=== PATIENT | female | born 1940 | race Caucasian/White ===

== ENCOUNTER 2017-11-06 12:07 | Day surgery (SDC) | payer MEDICARE ==
[~2017-11-06] VITALS: Ht 157.5 cm; Wt 49.7 kg
[~2017-11-06 12:07] MED LIST: ACET325 PO; ACIDOPHILUS PO; ALPR.5 PO; AMIT50 PO; ANAS1 PO; AZAT50 PO; Acidophilus La100 GM; BACL10 PO; BACL20 PO; BIOTIN PO; BISA5EC PO; CALCA500CH PO; CEVIMELINE 30 MG; CEVIMELINE HCL30 MG PO; CHOL10002 PO; CIPR500 PO; CRANBERRY250 MG PO; CYCL0.05OP OP; CYCL10 PO; DOCU100 PO; Desyrel50 MG; ESTR25VT PV; EVOXAC; EVOXAC PO; GABA300 PO; GLUCOSAMINE/MSM PO; HYDACE10B PO; HYDMOR2 PO; LAVAP17G PO; LIDO5TP TOP; MELA3 PO; META800 PO; MULTIVITAMIN; OMEP20ER PO; OMEP40CA12 PO; ONDA4 PO; OXYB5 PO; OXYC15ER PO; OXYC30ER PO; OXYC40ER PO; OXYC5 PO; Oxycodone HCl20 M1 PO; PARO20 PO; POLY17UD PO; PROP30DR OP; PSYL5.85P PO; RANI150 PO; SERT50 PO; VAGIFEM10 MCG; ZOLP10 PO; ZOLP12.5 PO; ZOLP5 PO
[2017-11-06] MEDS ORDERED: HYDSUL200 (12:26)
[2017-11-06] MEDS ORDERED: MYRBETRIQ25 MG (12:26)
== END 2017-11-06 13:38 | disposition home or self-care (01) ==
LOC: ORSCSDS 12:07
PROVIDERS: Internal Medicine Gastroenterology
PROC: 0DB68ZX Excision of Stomach, Via Natural or Artificial Opening Endoscopic, Diagnostic (ICD-10-PCS; principal; 2017-11-06 13:00)
PROC: 0D758ZZ Dilation of Esophagus, Via Natural or Artificial Opening Endoscopic (ICD-10-PCS; principal; 2017-11-06 13:00)
PROC: 0DB88ZX Excision of Small Intestine, Via Natural or Artificial Opening Endoscopic, Diagnostic (ICD-10-PCS; principal; 2017-11-06 13:00)
PROC: 0DB58ZX Excision of Esophagus, Via Natural or Artificial Opening Endoscopic, Diagnostic (ICD-10-PCS; principal; 2017-11-06 13:00)
DX: R13.10 Dysphagia, unspecified (principal); K20.9 Esophagitis, unspecified; K21.9 Gastro-esophageal reflux disease without esophagitis; F41.9 Anxiety disorder, unspecified; F41.8 Other specified anxiety disorders; Z87.891 Personal history of nicotine dependence; Z79.899 Other long term (current) drug therapy
CPT/HCPCS: J7120

== ENCOUNTER → 2017-11-29 | Outpatient (CLI) | payer MEDICARE ==
[~2017-11-29] MED LIST changes: +HYDSUL200; +MYRBETRIQ25 MG
== END | disposition home or self-care (01) ==
LOC: LAB 16:54 → LAB SHORT 16:54
PROVIDERS: Obstetrics & Gynecology Gynecology
DX: Z91.89 Other specified personal risk factors, not elsewhere classified (principal)
CPT/HCPCS: 87624; G0123

== ENCOUNTER 2019-03-14 09:54 | Day surgery (SDC) | payer MEDICARE ==
[~2019-03-14] VITALS: Ht 157.5 cm; Wt 51.8 kg
--- NOTE | 2019-03-14 10:50 | NUR ---
03/14/19 1050 Rain Martinez PT ASSISTED TO RESTROOM
== END 2019-03-14 11:51 | disposition home or self-care (01) ==
LOC: ORSCSDS 09:54
PROVIDERS: Surgery
PROC: 0DJD8ZZ Inspection of Lower Intestinal Tract, Via Natural or Artificial Opening Endoscopic (ICD-10-PCS; principal; 2019-03-14 11:00)
DX: Z12.11 Encounter for screening for malignant neoplasm of colon (principal); Z80.0 Family history of malignant neoplasm of digestive organs; F41.8 Other specified anxiety disorders; Z87.891 Personal history of nicotine dependence; Z79.899 Other long term (current) drug therapy
CPT/HCPCS: J2704; J7120

== ENCOUNTER → 2020-04-28 | Outpatient (CLI) | payer MEDICARE ==
[2020-04-28 18:52] LABS: Source, Urine Clean Catch
[2020-04-28 20:16] LABS: Bacteria Rare /hpf; Calcium Oxalate Crystals Few /hpf; Red Blood Cells, Urine 0-2 /hpf (0-2); Squamous Epithelial Cells Rare /hpf (Few); White Blood Cells, Urine 0-2 /hpf (0-5)
== END | disposition home or self-care (01) ==
LOC: LAB 18:49
PROVIDERS: Internal Medicine
DX: N39.0 Urinary tract infection, site not specified (principal)
CPT/HCPCS: 81015; 87086

== ENCOUNTER → 2023-12-07 | Outpatient (CLI) | payer MEDICARE | LOC: LAB SHORT 17:13 → LAB 17:13 | DX: N30.00 Acute cystitis without hematuria (principal) | CPT/HCPCS: 87077; 87086; 87186 ==

== ENCOUNTER → 2024-06-12 | Outpatient (CLI) | payer MEDICARE ==
[2024-06-12 20:08] LABS: Albumin, Blood 3.8 g/dL (3.4-5.0); Anion Gap 9 mmol/L (3-11); Blood Urea Nitrogen 16 mg/dL (8-24); Bun/Creatinine Ratio 20.8 (12.0-20.0); CO2, Blood 26 mmol/L (21-32); Calcium, Blood 8.8 mg/dL (8.5-10.1); Chloride, Blood 99 mmol/L (98-108); Creatinine, Blood 0.77 mg/dL (0.40-1.00); Ferritin, Serum 94 ng/mL (8-252); Glomerular Filtration Rate 77 (60-); Glucose, Blood 97 mg/dL (70-99); Iron Serum 80 ug/dL (50-170); Magnesium, Blood 1.6 mg/dL (1.6-2.4); Percent Saturation 23.9 % (15.0-50.0); Phosphorus, Blood 4.8 mg/dL (2.5-4.9); Potassium, Blood 3.9 mmol/L (3.5-5.5); Sodium, Blood 130 mmol/L (136-145); Total Iron Binding Capacity 335 ug/dL (250-450)
== END ==
LOC: LAB SHORT 17:48 → LAB 17:48
PROVIDERS: Internal Medicine
DX: G40.409 Other generalized epilepsy and epileptic syndromes, not intractable, without status epilepticus (principal); D64.9 Anemia, unspecified
CPT/HCPCS: 80069; 82728; 83540; 83550; 83735

== ENCOUNTER → 2025-05-02 | Outpatient (CLI) | payer MEDICARE ==
[2025-05-02 17:39] LABS: BASOPHILS ABSOLUTE AUTO 0.06 K/mm3 (0.00-0.23); BASOPHILS PERCENT AUTO 1 % (0-2); EOSINOPHILS ABSOLUTE AUTO 0.07 K/mm3 (0.00-0.68); EOSINOPHILS PERCENT AUTO 1 % (0-6); Hematocrit 39.6 % (33.0-51.0); Hemoglobin 13.2 g/dL (11.5-16.0); IMMATURE GRAN ABSOLUTE AUTO 0.01 K/mm3 (0.00-0.10); IMMATURE GRAN PERCENT AUTO 0 % (0-1); LYMPHOCYTES ABSOLUTE AUTO 1.06 K/mm3 (0.84-5.20); LYMPHOCYTES PERCENT AUTO 19 % (21-46); MONOCYTES ABSOLUTE AUTO 0.50 K/mm3 (0.16-1.47); MONOCYTES PERCENT AUTO 9 % (4-13); Mean Corpuscular HGB Conc 33.3 g/dL (31.5-36.5); Mean Corpuscular Volume 97 fL (80-100); NEUTROPHILS ABSOLUTE AUTO 3.96 K/mm3 (1.96-9.15); NEUTROPHILS PERCENT AUTO 70 % (41-73); NRBC ABSOLUTE 0.00 K/mm3 (0.00-0.02); NRBC Auto 0.0 /100 WBC (0.0-0.2); Platelet Count 234 K/mm3 (150-400); RDW Coefficient Variation 13.8 % (11.7-14.2); RDW Standard Deviation 50.0 fL (35.1-46.3)
[2025-05-02 19:10] LABS: Alanine Aminotransfer (ALT/SGP 17.0 U/L (12-78); Albumin, Blood 3.6 g/dL (3.4-5.0); Albumin/Globulin Ratio 1.3 (0.8-1.8); Anion Gap 9.0 mmol/L (3-11); Aspartate Aminotrans (AST/SGOT 18.0 U/L (12-37); Bilirubin, Total 0.3 mg/dL (0.1-1.0); Blood Urea Nitrogen 15.0 mg/dL (8-24); CO2, Blood 27.0 mmol/L (21-32); Calcium, Blood 8.5 mg/dL (8.5-10.1); Chloride, Blood 105.0 mmol/L (98-108); Creatinine, Blood 0.88 mg/dL (0.40-1.00); Globulin, Blood 2.8 g/dL (2.2-4.0); Glucose, Blood 95.0 mg/dL (70-99); Potassium, Blood 4.1 mmol/L (3.5-5.5); Sodium, Blood 137.0 mmol/L (136-145); Total Protein, Blood 6.4 g/dL (6.4-8.2)
== END ==
LOC: LAB SHORT 16:53 → LAB 16:53
PROVIDERS: Internal Medicine
DX: M06.09 Rheumatoid arthritis without rheumatoid factor, multiple sites (principal)
CPT/HCPCS: 80053; 85025